=== PATIENT | male | born 1950 | race Caucasian/White ===

== ENCOUNTER 2017-02-16 04:44 | Observation (INO) | payer MEDICARE ==
[2017-02-16] MEDS ORDERED: ASPIRIN 325 MG TABLET ONE (04:50)
[2017-02-16 05:11] LABS: EOSINOPHILS % (AUTO) 3.7 % (0.0-8.0); HEMATOCRIT 42.3 % (42-54); LYMPHOCYTES % (AUTO) 38.3 % (21.0-51.0); MEAN CORPUSCULAR HGB CONC 34.1 g/dL (32.0-36.0); MEAN CORPUSCULAR VOLUME 87.9 fL (79-99); MONOCYTES % (AUTO) 7.3 % (3.0-13.0); NEUTROPHILS % (AUTO) 49.7 % (40.0-77.0); PLATELET COUNT (AUTO) 274 K/uL (130-400); RED BLOOD CELL COUNT(AUTO) 4.81 MIL/uL (4.50-6.20); RED CELL DISTRIBUTION WIDTH 12.7 % (11.0-15.5); WHITE BLOOD COUNT (AUTO) 10.6 K/uL (4.8-10.8)
[2017-02-16 05:19] LABS: INR 0.93 (0.85-1.15); PARTIAL THROMBOPLASTIN TIME 26.4 SEC (26.3-35.5); PROTHROMBIN TIME 9.8 SEC (9.6-11.6)
[2017-02-16 05:21] LABS: CREATININE 1.3 mg/dL (0.5-1.5); POTASSIUM 3.3 mmol/L (3.5-5.1)
[2017-02-16 05:35] LABS: ALBUMIN 3.8 g/dL (3.5-5.0); BILIRUBIN,TOTAL 0.5 mg/dL (0.2-1.0); TOTAL PROTEIN, SERUM 7.9 g/dL (6.0-8.3)
[2017-02-16 05:40] LABS: B-TYPE NATRIURETIC PEPTIDE 5 pg/mL (0-100)
[2017-02-16] MEDS ORDERED: NITROGLYCERIN 1GM/1 INCH PACKET TD ONE (05:51)
[2017-02-16] MEDS ORDERED: POTASSIUM BICARB/CIT AC 25 MEQ TABLET.EFF ONE (06:45)
[2017-02-16 06:58] LABS: APPEARANCE,URINE CLEAR (CLEAR); BILIRUBIN,URINE NEGATIVE (NEGATIVE); COLOR,URINE YELLOW (YELLOW); GLUCOSE, URINE (UA) NEGATIVE (NEGATIVE); KETONES,URINE NEGATIVE (NEGATIVE); LEUKOCYTE ESTERASE ,URINE NEGATIVE (NEGATIVE); NITRATE,URINE NEGATIVE (NEGATIVE); OCCULT BLOOD,URINE NEGATIVE (NEGATIVE); PH,URINE 6.5 (5.0-8.0); PROTEIN,URINE NEGATIVE (NEGATIVE); UROBILINOGEN,URINE 0.2 mg/dL (0.2-1.0)
[2017-02-16 07:41] LABS: AMPHET/METH SCREEN,URINE NEGATIVE (NEGATIVE); BARBITURATE SCREEN, URINE NEGATIVE (NEGATIVE); BENZODIAZEPINES SCREEN,URINE NEGATIVE (NEGATIVE); CANNABINOID SCREEN,URINE NEGATIVE (NEGATIVE); COCAINE SCREEN,URINE NEGATIVE (NEGATIVE); OPIATE SCREEN,URINE NEGATIVE (NEGATIVE); PHENCYCLIDINE SCREEN,URINE NEGATIVE (NEGATIVE)
[2017-02-16 11:25] LABS: CREATINE KINASE MB 1.6 ng/mL (0.5-3.6); CREATINE KINASE, TOTAL 123 U/L (21-232); MYOGLOBIN 75 ng/mL (10-92); TROPONIN I < 0.04 ng/mL (0.00-0.06)
[2017-02-16] MEDS ORDERED: METOPROLOL TARTRATE 25 MG TAB ONE (12:37)
[2017-02-16 17:11] LABS: CREATINE KINASE MB 1.1 ng/mL (0.5-3.6); CREATINE KINASE, TOTAL 101 U/L (21-232); MYOGLOBIN 77 ng/mL (10-92); TROPONIN I < 0.04 ng/mL (0.00-0.06)
[2017-02-16] MEDS ORDERED: ACETAMINOPHEN 325 MG TAB ONE (20:08)
[2017-02-16] MEDS ORDERED: ONDANSETRON HCL 4 MG/2 ML VIAL ONE (20:09)
[2017-02-17] MEDS ORDERED: REGADENOSON 0.4 MG/5 ML PF SYG IVP SCH (08:30)
[2017-02-17] MEDS ORDERED: METOPROLOL TARTRATE 25 MG TAB ONE (20:45)
[2017-02-17 22:23] LABS: HEMOGLOBIN A1C 5.7 % (4.0-6.0)
[2017-02-17 22:30] LABS: CHOLESTEROL 216 mg/dL (<200); HDL CHOLESTEROL 36 mg/dL (29-71); LDL DIRECT 123 mg/dL (0-99); TRIGLYCERIDES 380 mg/dL (30-200)
[2017-02-17] MEDS ORDERED: ATORVASTATIN CALCIUM 40 MG TABLET PO SCH (23:00)
[2017-02-18] MEDS ORDERED: ASPIRIN 325 MG TABLET ONE (00:04)
[2017-02-18] MEDS ORDERED: METO25TA6 PO (07:16)
[2017-02-18] MEDS ORDERED: ATOR10 PO (07:17)
[2017-02-18] MEDS ORDERED: ASPI-1012 PO (07:18)
== END 2017-02-18 10:33 | disposition home or self-care (01) ==
LOC: EDH 04:44 → EDHIP 06:35
PROVIDERS: ADMIT Family Medicine; ATTEND Family Medicine
DX: R07.89 Other chest pain (principal); R42 Dizziness and giddiness; E78.5 Hyperlipidemia, unspecified; Z87.891 Personal history of nicotine dependence; Z80.8 Family history of malignant neoplasm of other organs or systems; Z87.442 Personal history of urinary calculi
CPT/HCPCS: 36415 ×2; 71010; 78452; 80053; 80061; 80305; 81003; 82550 ×3; 82553 ×3; 82948; 83036; 83874 ×2; 83880; 84484 ×3; 85025; 85610; 85730; 93005 ×3; 93017; 93306; 96374; 99285; A9500 ×2; G0378 ×52; J2405; J2785

== ENCOUNTER 2017-04-20 06:23 | Day surgery (SDC) | payer MEDICARE ==
[~2017-04-20] VITALS: Ht 182.9 cm; Wt 85.1 kg
[~2017-04-20 06:23] MED LIST: ASPI-1012 PO
[2017-04-20] MEDS ORDERED: SODIUM CHLORIDE 0.9% 1000ML 1,000 ML IV ONE (06:50)
[2017-04-20 07:04] VITALS: BP 154/84
[2017-04-20] MEDS ORDERED: PROPOFOL 10 MG/ML 20ML VIAL IV ONE ×2 (08:00)
[2017-04-20] MEDS ORDERED: PHENYLEPHRINE HCL 10 MG/ML 1ML VIAL IV ONE (08:25)
[2017-04-20 08:42] VITALS: BP 87/50
== END 2017-04-20 09:18 | disposition home or self-care (01) ==
LOC: DAH 06:23
PROVIDERS: ATTEND Internal Medicine Gastroenterology
DX: Z12.11 Encounter for screening for malignant neoplasm of colon (principal); I10 Essential (primary) hypertension; E78.5 Hyperlipidemia, unspecified; Z79.899 Other long term (current) drug therapy; D12.0 Benign neoplasm of cecum; D12.2 Benign neoplasm of ascending colon; K57.30 Diverticulosis of large intestine without perforation or abscess without bleeding
CPT/HCPCS: 45380; 45385; 88305; 93005; A4606; J2370; J2704 ×2; J7030

== ENCOUNTER 2021-11-20 02:11 | Emergency (ER) | payer OTHER ==
[~2021-11-20] VITALS: Ht 182.9 cm; Wt 91.2 kg
[2021-11-20 02:46] LABS: BASOPHILS % (AUTO) 1.3 % (0.0-5.0); EOSINOPHILS % (AUTO) 5.1 % (0.0-8.0); HEMATOCRIT 41.9 % (42-54); LYMPHOCYTES % (AUTO) 40.3 % (21.0-51.0); MEAN CORPUSCULAR HEMOGLOBIN 30.3 pg (27.0-33.0); MEAN CORPUSCULAR HGB CONC 34.4 g/dL (32.0-36.0); MEAN CORPUSCULAR VOLUME 88.2 fL (79-99); NEUTROPHILS % (AUTO) 45.1 % (40.0-77.0); PLATELET COUNT (AUTO) 258 K/uL (130-400); RED BLOOD CELL COUNT(AUTO) 4.75 MIL/uL (4.50-6.20); RED CELL DISTRIBUTION WIDTH 12.3 % (11.0-15.5); WHITE BLOOD COUNT (AUTO) 8.8 K/uL (4.8-10.8)
[2021-11-20 02:50] LABS: APPEARANCE,URINE CLEAR (CLEAR); BILIRUBIN,URINE NEGATIVE (NEGATIVE); COLOR,URINE COLORLESS (YELLOW); GLUCOSE, URINE (UA) NEGATIVE (NEGATIVE); KETONES,URINE NEGATIVE (NEGATIVE); LEUKOCYTE ESTERASE ,URINE NEGATIVE Leu/uL (NEGATIVE); NITRATE,URINE NEGATIVE (NEGATIVE); OCCULT BLOOD,URINE NEGATIVE (NEGATIVE); PH,URINE 6.5 (5.0-8.0); PROTEIN,URINE NEGATIVE (NEGATIVE); UROBILINOGEN,URINE 0.2 mg/dL (0.2-1.0)
[2021-11-20 02:56] LABS: CREATININE 1.4 mg/dL (0.5-1.5); POTASSIUM 3.5 mmol/L (3.5-5.1)
[2021-11-20 03:01] LABS: ALBUMIN 3.8 g/dL (3.5-5.0); TOTAL PROTEIN, SERUM 7.6 g/dL (6.0-8.3)
[2021-11-20 05:32] VITALS: BP 116/58
== END 2021-11-20 05:36 | disposition home or self-care (01) ==
LOC: EDH 02:11
DX: I10 Essential (primary) hypertension (principal); E03.9 Hypothyroidism, unspecified
CPT/HCPCS: 36415; 71045; 80053; 81003; 84484; 85025; 93005

== ENCOUNTER → 2021-12-16 | Outpatient (CLI) | payer OTHER ==
[~2021-12-16] MED LIST changes: -ASPI-1012 PO; +REGADENOSON 0.4 MG/5 ML PF SYG IVP SCH
== END | disposition home or self-care (01) ==
LOC: SHCH 09:03
PROVIDERS: ATTEND Internal Medicine Cardiovascular Disease
DX: R94.39 Abnormal result of other cardiovascular function study (principal); R07.9 Chest pain, unspecified
CPT/HCPCS: 78452; 96374; 93017; J2785; A9500 ×2

== ENCOUNTER 2022-01-05 07:20 | Day surgery (SDC) | payer OTHER ==
[2022-01-01 14:17] LABS: BASOPHILS % (AUTO) 1.4 % (0.0-5.0); HEMATOCRIT 44.6 % (42-54); LYMPHOCYTES % (AUTO) 28.9 % (21.0-51.0); MEAN CORPUSCULAR HEMOGLOBIN 30.2 pg (27.0-33.0); MEAN CORPUSCULAR HGB CONC 33.6 g/dL (32.0-36.0); MEAN CORPUSCULAR VOLUME 89.7 fL (79-99); NEUTROPHILS % (AUTO) 57.4 % (40.0-77.0); PLATELET COUNT (AUTO) 274 K/uL (130-400); RED BLOOD CELL COUNT(AUTO) 4.97 MIL/uL (4.50-6.20); RED CELL DISTRIBUTION WIDTH 12.2 % (11.0-15.5); WHITE BLOOD COUNT (AUTO) 7.7 K/uL (4.8-10.8)
[2022-01-01 14:23] LABS: CREATININE 1.4 mg/dL (0.5-1.5); POTASSIUM 3.9 mmol/L (3.5-5.1)
[2022-01-01 14:24] LABS: APPEARANCE,URINE CLEAR (CLEAR); BILIRUBIN,URINE NEGATIVE (NEGATIVE); COLOR,URINE LIGHT-YELLOW (YELLOW); GLUCOSE, URINE (UA) NEGATIVE (NEGATIVE); KETONES,URINE NEGATIVE (NEGATIVE); LEUKOCYTE ESTERASE ,URINE NEGATIVE Leu/uL (NEGATIVE); NITRATE,URINE NEGATIVE (NEGATIVE); OCCULT BLOOD,URINE NEGATIVE (NEGATIVE); PROTEIN,URINE NEGATIVE (NEGATIVE); UROBILINOGEN,URINE 0.2 mg/dL (0.2-1.0)
[2022-01-01 14:26] LABS: INR 0.94 (0.85-1.15); PROTHROMBIN TIME 10.3 SEC (9.6-11.6)
[2022-01-01 14:28] LABS: MUCUS,URINE RARE LPF (None Seen); RBC,URINE 0-1 /HPF (0-1); WBC,URINE 0-1 /HPF (0-1)
[2022-01-01 14:28] LABS: PARTIAL THROMBOPLASTIN TIME 26.8 SEC (26.3-35.5)
[2022-01-02 10:04] VITALS: BP 154/65
[~2022-01-05] VITALS: Ht 182.9 cm; Wt 89.4 kg
[2022-01-05] VITALS (9 sets, daily range): BP systolic 112–141; BP diastolic 59–69
[~2022-01-05 07:20] MED LIST changes: +AEC81 PO; +CARV6.25 PO; +FENO160T16 PO; +LEVO50CA4 PO; +LOSA50TA64 PO; +NIFE30TA98 PO; -REGADENOSON 0.4 MG/5 ML PF SYG IVP SCH; +ROSU10TA28 PO
[2022-01-05] MEDS ORDERED: 0.9%NACL 1000ML 1,000 ML IV SCH ×2 (08:00→13:30)
[2022-01-05] MEDS ORDERED: HEPARIN 10,000 UNIT/10ML (1,000 UNIT/ML) VIAL ONE (11:08)
[2022-01-05] MEDS ORDERED: NICARDIPINE 25MG INJ IV ONE (11:08)
[2022-01-05] MEDS ORDERED: NITROGLYCERIN 50MG VIAL ONE (11:09)
[2022-01-05] MEDS ORDERED: FENTANYL CITRATE PF 50 MCG/1 ML 2ML VIAL ONE (11:09)
[2022-01-05] MEDS ORDERED: IOHEXOL 350 MG/ML 100ML INFUS..BTL IV ONE ×2 (11:09→11:53)
[2022-01-05] MEDS ORDERED: LIDOCAINE HCL 1% 20 ML VIAL ONE (11:09)
[2022-01-05] MEDS ORDERED: MIDAZOLAM HCL 1 MG/ML 2ML VIAL ONE (11:09)
[2022-01-05] MEDS ORDERED: IOHEXOL-350 50ML VIAL IV ONE (11:53)
[2022-01-05] MEDS ORDERED: ASPIRIN 325MG EC TAB PO ONE (12:00)
[2022-01-05] MEDS ORDERED: CLOPIDOGREL 300MG TAB ONE (12:00)
[2022-01-05] MEDS ORDERED: NITROGLYCERIN 4.1 GM SPRAY TL ONE (12:56)
[2022-01-05] MEDS ORDERED: ONDANSETRON 4MG INJ ONE (12:57)
[2022-01-05] MEDS ORDERED: DEXTROSE 50%-WATER 50 ML DISP.SYRIN IV PRN (13:30)
[2022-01-05] MEDS ORDERED: GLUCAGON 1MG KIT 1 MG ML IM PRN (13:30)
== END 2022-01-05 17:20 | disposition home or self-care (01) ==
LOC: DAH 07:20
PROVIDERS: ATTEND Internal Medicine Cardiovascular Disease
DX: I25.119 Atherosclerotic heart disease of native coronary artery with unspecified angina pectoris (principal); I10 Essential (primary) hypertension; G47.33 Obstructive sleep apnea (adult) (pediatric); E78.5 Hyperlipidemia, unspecified; E03.9 Hypothyroidism, unspecified; Z79.890 Hormone replacement therapy; Z79.82 Long term (current) use of aspirin; Z79.899 Other long term (current) drug therapy; Z79.01 Long term (current) use of anticoagulants
CPT/HCPCS: 80048; 85025; 85610; 85730; 81001; 36415; 71045; 93005; 93454; C9600; C1769 ×2; C1887 ×3; C1894; C1874 ×2; C1725 ×2; J3010; J7030 ×2; J3490 ×2; J1644 ×3; J2250; J2405; Q9967 ×3; A4215; A4222; A4221; A4663; A4216; A4606; Q9965 ×2; A4223 ×3; 96360; 96361; 99156; 99157

== ENCOUNTER → 2022-07-28 | Outpatient (CLI) | payer OTHER ==
[~2022-07-28] MED LIST changes: +NIFE-78 PO; -NIFE30TA98 PO
== END | disposition home or self-care (01) ==
LOC: SHCH 11:28
PROVIDERS: ATTEND Internal Medicine Cardiovascular Disease
DX: I87.2 Venous insufficiency (chronic) (peripheral) (principal); R60.0 Localized edema
CPT/HCPCS: 93970

== ENCOUNTER → 2023-03-15 | Outpatient (CLI) | payer OTHER | END | disposition home or self-care (01) | LOC: SHCH 13:03 | PROVIDERS: ATTEND Internal Medicine Cardiovascular Disease | DX: I87.2 Venous insufficiency (chronic) (peripheral) (principal); Z98.890 Other specified postprocedural states | CPT/HCPCS: 93971 ==

== ENCOUNTER → 2023-05-01 | Outpatient (CLI) | payer OTHER | END | disposition home or self-care (01) | LOC: RAH 08:00 | PROVIDERS: ATTEND Internal Medicine Cardiovascular Disease | DX: I34.81 Nonrheumatic mitral (valve) annulus calcification (principal); I25.10 Atherosclerotic heart disease of native coronary artery without angina pectoris | CPT/HCPCS: 93306 ==

== ENCOUNTER → 2024-03-24 | Outpatient (CLI) | payer OTHER ==
[~2024-03-24] MED LIST changes: -ROSU10TA28 PO; +ROSU10TA72 PO
[2024-03-24 12:31] LABS: BASOPHILS # (AUTO) 0.08 K/uL (0.00-0.20); BASOPHILS % (AUTO) 1.2 % (0.0-5.0); EOSINOPHILS % (AUTO) 4.5 % (0.0-8.0); HEMATOCRIT 45.9 % (42-54); IMMATURE GRANULOCYTE ABSOLUTE 0.01 K/uL (0-1); LYMPHOCYTES # (AUTO) 2.6 K/uL (1.0-4.8); LYMPHOCYTES % (AUTO) 38.3 % (21.0-51.0); MEAN CORPUSCULAR HEMOGLOBIN 30.2 pg (27.0-33.0); MEAN CORPUSCULAR HGB CONC 32.5 g/dL (32.0-36.0); MEAN CORPUSCULAR VOLUME 93.1 fL (79-99); MONOCYTES # (AUTO) 0.5 K/uL (0.1-1.0); MONOCYTES % (AUTO) 7.7 % (3.0-13.0); NEUTROPHILS # (AUTO) 3.2 K/uL (1.8-7.7); NEUTROPHILS % (AUTO) 48.1 % (40.0-77.0); PLATELET COUNT (AUTO) 260 K/uL (130-400); RED BLOOD CELL COUNT(AUTO) 4.93 MIL/uL (4.50-6.20); RED CELL DISTRIBUTION WIDTH 12.5 % (11.0-15.5); WHITE BLOOD COUNT (AUTO) 6.7 K/uL (4.8-10.8)
[2024-03-24 12:40] LABS: INR <= 0.93 (0.85-1.15); PROTHROMBIN TIME 10.2 SEC (9.6-11.6)
[2024-03-24 12:41] LABS: PARTIAL THROMBOPLASTIN TIME 26.4 SEC (26.3-35.5)
[2024-03-24 12:51] LABS: CREATININE 1.4 mg/dL (0.5-1.3); POTASSIUM 4.1 mmol/L (3.5-5.1)
== END | disposition home or self-care (01) ==
LOC: LAB 09:28
PROVIDERS: ATTEND Internal Medicine Cardiovascular Disease
DX: I87.2 Venous insufficiency (chronic) (peripheral) (principal); I10 Essential (primary) hypertension; R07.9 Chest pain, unspecified
CPT/HCPCS: 36415; 80048; 85025; 85610; 85730